=== PATIENT | male | born 1950 | race Caucasian/White ===

== ENCOUNTER 2019-07-31 19:44 | Emergency (ER) | payer OTHER ==
[~2019-07-31] VITALS: Ht 170.2 cm; Wt 86.2 kg
[~2019-07-31 19:44] MED LIST: ALEVE220 MG PO; ASPIRIN325 PO; CIPRO500 M1 PO; FLOMAX0.4 MG PO; PRILOSEC20 MG PO; PROSCAR 5MG TABL5 MG PO
[2019-07-31] MEDS ORDERED: MAGNESIUM250 M1 PO (20:03)
[2019-07-31] MEDS ORDERED: DOXEPIN HCL10 MG PO (20:03)
[2019-07-31 20:21] LABS: ABSOLUTE BASOPHILS 0.1 thou/uL (0.0-0.2); ABSOLUTE EOSINOPHILS 0.2 thou/uL (0.0-0.7); ABSOLUTE LYMPHOCYTES 1.3 thou/uL (0.8-5.3); ABSOLUTE MONOCYTES 0.4 thou/uL (0.0-1.2); ABSOLUTE NEUTROPHILS 3.3 thou/uL (1.6-8.1); EOSINOPHILS 3.2 %; HEMATOCRIT 40.6 % (42.0-52.0); HEMOGLOBIN 14.2 gm/dL (14.0-18.0); LYMPHOCYTES 24.9 %; MCH 29.8 pg (26.0-34.0); MCHC 34.9 g/dL (28.0-37.0); MCV 85.4 fL (80.0-100.0); MONOCYTES 8.1 %; MPV 7.9 fl. (7.2-11.1); NUCLEATED RBCS 0 /100WBC; PLATELET COUNT* 261 thou/uL (150-400); POLYS 61.8 %; RBC 4.75 mil/uL (4.50-6.00); WBC 5.3 thou/uL (4.0-11.0)
[2019-07-31 20:26] LABS: PROTIME 10.5 Seconds (9.20-11.50)
[2019-07-31 20:29] LABS: CALCIUM 8.5 mg/dL (8.5-10.1); CREATININE 1.1 mg/dL (0.6-1.3); POTASSIUM 4.3 mmol/L (3.5-5.1)
[2019-07-31 20:35] LABS: ALBUMIN 3.7 g/dL (3.4-5.0); TOTAL BILIRUBIN 0.2 mg/dL (<0.1-1.0); TOTAL PROTEIN 7.4 g/dL (6.4-8.2)
[2019-07-31 20:55] LABS: URINE BILIRUBIN NEGATIVE (Negative); URINE BLOOD NEGATIVE (Negative); URINE CLARITY CLEAR; URINE COLOR YELLOW; URINE GLUCOSE-RANDOM NEGATIVE (Negative); URINE KETONES NEGATIVE (Negative); URINE LEUKOCYTES-REFLEX NEGATIVE (Negative); URINE NITRITE-REFLEX NEGATIVE (Negative); URINE PROTEIN NEGATIVE (Negative)
[2019-07-31 22:10] VITALS: BP 132/92
--- NOTE | 2019-08-01 16:47 | EKG ---
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: [place] : 1950 Requested By: Ayana Argueta Order Number: [id number] MD: Rakan Chaparro Measurements Intervals [place] Rate: 103 P: 16 SD: 153 QRS: -19 QRSD: 88 T: 27 QT: 326 QTc: 427 Interpretive Statements Sinus tachycardia Borderline left axis deviation Borderline low voltage, extremity leads No previous ECG available for comparison Electronically Signed On 08-01-2019 16:46:59 [employer] by Rakan Chaparro [email or web address] <ELECTRONICALLY SIGNED> By: Rakan Chaparro MD, [facility] 08/01/19 1646 52 52 Rakan Chaparro MD, FACC /EPI
== END 2019-07-31 22:11 | disposition home or self-care (01) ==
LOC: M.ERS 19:44
PROVIDERS: Emergency Medicine
DX: R42 Dizziness and giddiness (principal); Z88.0 Allergy status to penicillin

== ENCOUNTER 2019-12-27 18:07 | Emergency (ER) | payer OTHER ==
[~2019-12-27] VITALS: Ht 170.2 cm; Wt 86.2 kg
[~2019-12-27 18:07] MED LIST changes: +DOXEPIN HCL10 MG PO; +MAGNESIUM250 M1 PO
[2019-12-27] MEDS ORDERED: NEXIUM20 M1 PO (18:20)
[2019-12-27 18:35] LABS: HEMATOCRIT 43.4 % (42.0-52.0); MCH 29.2 pg (26.0-34.0); MCHC 34.5 g/dL (28.0-37.0); MCV 84.7 fL (80.0-100.0); MPV 8.1 fl. (7.2-11.1); NUCLEATED RBCS 0 /100WBC; PLATELET COUNT* 255 thou/uL (150-400); RBC 5.13 mil/uL (4.50-6.00); RDW-CV 14.8 % (10.5-14.5)
[2019-12-27 18:46] LABS: CALCIUM 8.8 mg/dL (8.5-10.1); POTASSIUM 4.1 mmol/L (3.5-5.1)
[2019-12-27 18:51] LABS: ALBUMIN 4.3 g/dL (3.4-5.0); TOTAL BILIRUBIN 0.4 mg/dL (<0.1-1.0); TOTAL PROTEIN 8.1 g/dL (6.4-8.2)
[2019-12-27 19:02] LABS: ABSOLUTE EOSINOPHILS 0.1 thou/uL (0.0-0.7); ABSOLUTE LYMPHOCYTES 0.7 thou/uL (0.8-5.3); ABSOLUTE MONOCYTES 0.2 thou/uL (0.0-1.2); PLATELET ESTIMATE ADEQUATE
[2019-12-27] MEDS ORDERED: CITRATE OF MAG296 M1 PO (19:39)
[2019-12-27 20:09] VITALS: BP 133/89
--- NOTE | 2019-12-28 19:18 | EKG ---
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: : 1950 Requested By: Ihsan Darby Order Number: [id number] MD: Rakan Chaparro Measurements Intervals [place] Rate: 108 P: 25 NC: 160 QRS: -21 QRSD: 88 T: 37 QT: 325 QTc: 436 Interpretive Statements Sinus tachycardia Borderline left axis deviation Low voltage, extremity leads Compared to ECG 07/31/2019 19:53:26 No significant changes Electronically Signed On 12-28-2019 17:41:37 CDT by Rakan Chaparro [email or web address] <ELECTRONICALLY SIGNED> By: Rakan Chaparro MD, FACC 12/28/19 1741 1833 1833 Rakan Chaparro MD, FAC /EPI
== END 2019-12-27 20:10 | disposition home or self-care (01) ==
LOC: M.ERS 18:07
PROVIDERS: Physician Assistant
DX: K56.41 Fecal impaction (principal); Z88.0 Allergy status to penicillin; Z79.899 Other long term (current) drug therapy

== ENCOUNTER → 2021-08-17 | Outpatient (CLI) | payer OTHER ==
[~2021-08-17] MED LIST changes: +CITRATE OF MAG296 M1 PO; +NEXIUM20 M1 PO
== END ==
LOC: M.CT 08-10 08:15
PROVIDERS: ATTEND Internal Medicine Cardiovascular Disease
DX: Z13.6 Encounter for screening for cardiovascular disorders (principal)

== ENCOUNTER → 2021-09-03 | Outpatient (CLI) | payer OTHER ==
--- NOTE | 2021-09-03 14:06 | 2DMMODE ---
[place] [address] 2 D/M-MODE ECHOCARDIOGRAM Name: ZANDER TORRES Room: [facility]#: [id number] Admission: 09/03/21 Attend Phys: Rakan Chaparro, Discharge: Date of : 48 Date of Service: 09/03/21 1406 Report #: [id number] THIS REPORT FOR: cc: Андрей Bean MD, William MD Blick,Elroy Garcia MD [facility] ~ APPROVED REPORT Study performed: 09/03/2021 14:07:52 EXAM: Comprehensive 2D, Doppler, and color-flow Echocardiogram Patient Location: Out-Patient BSA: 1.98 HR: 65 bpm BP: 152/88 mmHg Other Information Study Quality: Good Indications Chest Pain 2D Dimensions IVSd: 12.35 (7-11mm) LVOT Diam: 20.38 (18-24mm) LVDd: 41.73 mm PWd: 10.20 (7-11mm) Ascending Ao: 31.85 (22-36mm) LVDs: 26.05 (25-40mm) Aortic Root: 32.88 mm Volumes Left Atrial Volume (Systole) LA ESV Index: 25.10 mL/m2 Aortic Valve AoV Peak Miguel.: 1.38 m/s AO Peak Gr.: 7.56 mmHg LVOT Max P.55 mmHg AO Mean Gr.: 4.26 mmHg LVOT Mean P.83 mmHg LVOT Max V: 1.46 m/s AO V2 VTI: 26.78 cm LVOT Mean V: 0.88 m/s JETHRO (VTI): 3.72 cm2 LVOT V1 VTI: 30.51 cm Mitral Valve E/A Ratio: 0.67 [place] [address] 2 D/M-MODE ECHOCARDIOGRAM Name: ZANDER TORRES Room: [facility]#: [id number] Admission: 09/03/21 Attend Phys: Rakan Chaparro, Discharge: Date of : 48 Date of Service: 09/03/21 1406 Report #: [id number] MV Decel. Time: 196.83 ms MV E Max Miguel.: 0.66 m/s MV PHT: 57.08 ms MVA (PHT): 3.85 cm2 TDI E/Lateral E': 5.50 E/Medial E': 6.60 Medial E' Miguel.: 0.10 m/s Lateral E' Miguel.: 0.12 m/s Pulmonary Valve PV Peak Miguel.: 0.97 m/s PV Peak Gr.: 3.78 mmHg Tricuspid Valve RAP Estimate: 5.00 mmHg TR Peak Gr.: 21.80 mmHg RVSP: 26.80 mmHg PA Pressure: 26.80 mmHg Left Ventricle The left ventricle is normal size. There is normal LV segmental wall motion. There is normal left ventricular wall thickness. Left ventricular systolic function is normal. The left ventricular ejection fraction is within the normal range. LVEF is 55-60%. Grade I - abnormal relaxation pattern. Right Ventricle The right ventricle is normal size. The right ventricular systolic function is normal. Atria The left atrium size is normal. The atrial septum is aneurysmal. The right atrium size is normal. Aortic Valve The aortic valve is normal in structure. No aortic regurgitation is present. There is no aortic valvular stenosis. Mitral Valve The mitral valve is normal in structure. Mild mitral regurgitation. No evidence of mitral valve stenosis. Tricuspid Valve The tricuspid valve is normal in structure. Mild tricuspid regurgitation[place] [address] 2 D/M-MODE ECHOCARDIOGRAM Name: ZANDER TORRES Room: [facility]#: [id number] Admission: 09/03/21 Attend Phys: Rakan Chaparro, Discharge: Date of : 48 Date of Service: 09/03/21 1406 Report #: [id number] The pulmonary valve is normal in structure. There is no pulmonic valvular regurgitation. Great Vessels The aortic root is normal in size. IVC is normal in size and collapses >50% with inspiration. Pericardium There is no pericardial effusion. <Conclusion> Left ventricular systolic function is normal. The left ventricular ejection fraction is within the normal range. <ELECTRONICALLY SIGNED> By: Elroy Vail MD, FACC 09/03/211405 05 05 Elroy Vail MD, FACC /INF
--- NOTE | 2021-09-12 08:45 | NST ---
[place] [address] NUCLEAR STRESS TEST Name: ZANDER TORRES Room: [facility]#: [id number] Admission: 09/03/21 Attend Phys: Rakan Chaparro, Discharge: Date of : 48 Date of Service: 09/06/21 1613 Report #: [id number] THIS REPORT FOR: cc: Андрей Bean MD, William MD [place],Rakan Peña MD [facility] Rakan Chaparro MD [facility] ~ Sex/Age : M/70Y Height/Weight : cm/kg Patient Name : MELISSA FERMIN Study Date : 2021-09-03 BSA : ? Requesting Name : NM CARDIAC STRESS TEST Date of : 1950 Request Doctor : SAL Department : CARD --< Approved Report > Imaging Protocol: Stress Tc-99m/Rest Tc-99m 1 day Study performed: 09/03/2021 10:45:00 Indication: Chest pain, Palpitations Patient Location: Out-Patient Stress Nurse: Tita Will RN Ht: 5 ft 6 in Wt: 191 lbs BSA: 1.96 m2 BMI: 30.82 Medical History Medical History: Atrial Fibrillation Medications: metoprolol, riveroxaban Allergies: penicillin Cardiac Risk Factors: Age, FHX of CAD, Past Smoker Exercise History: Sedentary Resting Data Rest SPECT myocardial perfusion imaging was performed in supine position 30 minutes following the intravenous injection of 9.7 mCi of Tc-99m Sestamibi. Time of rest injection: 10:55 The images were gated to evaluate regional wall motion and calculate left ventricular ejection fraction. Administration Route: IV Administration Site: [place] [address] NUCLEAR STRESS TEST Name: ZANDER TORRES Room: [facility]#: [id number] Admission: 09/03/21 Attend Phys: Rakan Chaparro, Discharge: Date of : 48 Date of Service: 09/06/21 1613 Report #: [id number] Pharmacologic Stress Pharmacologic stress test was performed by injecting Regadenoson 0.4 mg IV push over 10-15 seconds immediately followed by the intravenous injection of 35.1 mCi of Tc-99m Sestamibi. Time of stress injection: 12:00 Administration Route: IV Administration Site: Right Hand Heart Rate at time of stress injection: 78 bpm. Gated Stress SPECT was performed 45 minutes after stress injection. The images were gated to evaluate regional wall motion and calculate left ventricular ejection fraction. Prone imaging was performed. Stress Test Details Stress Test: Pharmacologic stress testing performed using 0.4 mg of regadenoson per 5 mL given IV over 10 seconds. Reason for pharmacologic stress test: physical limitation. HR Max Heart Rate (APMHR): 149 bpm Resting HR: 54 bpm Target HR (85% APMHR): 126 bpm Max HR Achieved: 79 bpm % of APMHR: 53 Recovery HR: 69 bpm BP Resting BP: 133/80 mmHg Max BP: 141/73 mmHg Recovery BP: 141/72 mmHg ECG Resting ECG: Sinus bradycardia Stress ECG: Sinus rhythm ST Change: None Arrhythmia: None Recovery ECG: Sinus rhythm Recovery ST Change: None Recovery Arrhythmia: None Clinical Reason for Termination: Completed protocol The patient tolerated Lexiscan infusion without significant cardiac symptoms. Nurse Comments pt has unsteady gait and cannot walk on treadmill Stress ECG Conclusion The baseline twelve-lead EKG shows sinus bradycardia [place] [address] NUCLEAR STRESS TEST Name: ZANDER TORRES Room: [facility]#: [id number] Admission: 09/03/21 Attend Phys: Rakan Chaparro, Discharge: Date of : 48 Date of Service: 09/06/21 1613 Report #: [id number] segment or T wave abnormality. EKGs obtained during and post Lexiscan infusion show sinus rhythm with no significant ST segment or T wave changes when compared to baseline. There were no stress-induced arrhythmias. Study Quality Study: Good Artifact: No artifact Study Data At rest, the left ventricular ejection fraction was 74%.. Post stress, the left ventricular ejection was 73%.. TID = 0.97. Perfusion Perfusion images obtained at rest and post Lexiscan stress showed uniform uptake of the radioisotope throughout the myocardium. There were no defects to suggest infarct or ischemia. Wall Motion Normal left ventricular wall motion. Nuclear Conclusion ECG Findings: negative for ischemia Clinical Findings: negative for ischemia Nuclear Findings: negative for ischemia Exercise Capacity: not assessed Left Ventricular Function: normal Risk Study: low Perfusion images show no defect to suggest infarct or ischemia. Left ventricular systolic function is normal on gated studies. This is a low risk study. <Conclusion> The baseline twelve-lead EKG shows sinus bradycardia without significant ST segment or T wave abnormality. EKGs obtained during and post Lexiscan infusion show sinus rhythm with no significant ST segment or T wave changes when compared to baseline. There were no stress-induced arrhythmias. Electronically Approved : 09/11/2021 16:06:49 By: [id number] Rakan Chaparro MD, FACC /
== END ==
LOC: M.CRD 08-21 13:13 → M.NUC 10:03 → M.CRD 13:00
PROVIDERS: ATTEND Internal Medicine Cardiovascular Disease
DX: I08.1 Rheumatic disorders of both mitral and tricuspid valves (principal); R00.1 Bradycardia, unspecified; I48.0 Paroxysmal atrial fibrillation; R07.1 Chest pain on breathing